=== PATIENT | female | born 1985 | race Caucasian/White ===

== ENCOUNTER 2022-03-12 12:22 | Outpatient (CLI) | payer OTHER, SELFPAY ==
--- NOTE | ~2022-03-12 | MMUS_ITS ---
EXAMINATION: MM diagnostic noel RT w gage, US breast RT limited HISTORY: Follow-up right breast asymmetry TECHNIQUE: Additional 3-D tomosynthesis images of the right breast were performed and synthetic 2-D i mages were generated. CAD analysis was submitted and interpreted. High resolution Limited right breas t ultrasound was performed. COMPARISON: 02/18/2022 BREAST PARENCHYMAL COMPOSITION: Breast composed of scattered areas of fibroglandular density FINDINGS: MAMMOGRAPHIC FINDINGS: There is a persistent subareolar mass with poorly circumscribed margins measuring approximately 2 cm. There are internal calcifications. ULTRASOUND: Limited right breast ultrasound: There are the areola at 9:00 there is a 2.5 x 1.0 x 1.6 cm predomina ntly hypoechoic although heterogeneous mass. There is parallel orientation with no significant sales and merchandising associate ior features or internal vascularity. There are internal calcifications IMPRESSION: 1. Complex 2.5 cm right breast mass in the periareolar location at 9:00. 2. Ultrasound-guided right breast biopsy recommended. BI-RADS category 4, suspicious findings. Reviewed, dictated and finalized at location B. [facility] IMPRESSION: 1. Complex 2.5 cm right breast mass in the periareolar location at 9:00. 2. Ultrasound-guided right breast biopsy recommended. BI-RADS category 4, suspicious findings.
== END 2022-03-12 12:23 | disposition home or self-care (01) ==
LOC: ANHIMG 12:27
PROVIDERS: Visit Provider Surgery Plastic and Reconstructive Surgery
DX: R92.8 Other abnormal and inconclusive findings on diagnostic imaging of breast (principal)
CPT/HCPCS: 76642; 77061; 77065; G0279

== ENCOUNTER 2022-06-27 09:55 | Day surgery (SDC) | payer OTHER, SELFPAY ==
[2022-06-18 09:16] VITALS: BMI 28.4
[2022-06-27] VITALS (7 sets, daily range): BP systolic 91–121; BP diastolic 62–86; PULSE 47–88; RESP 14–20; TEMP 36.5–36.9; O2SAT 99–100
--- NOTE | 2022-06-27 06:50 | WPDANESEPPF ---
Anes - Initial Pre Proc Eval Procedure: Operation Date: 06/27/22 11:30 Proposed Procedures p Bilateral Breast Augmentation Mammoplasty - Tomas Rdz MD <Kp Hussein DO - Last Filed: 07/07/22 08:26> Date/Time: 06/27/22 06:50 <Kp Hussein DO - Last Filed: 07/07/22 08:26> Surgeon: Tomas Rdz MD <Kp Hussein DO - Last Filed: 07/07/22 08:26> Pre Op Diagnosis: Micromastia <Kp Hussein DO - Last Filed: 07/07/22 08:26> Patient Data Age: 37 Gender: F Height: 1.68 m Weight: 80 kg <Kp Hussein DO - Last Filed: 07/07/22 08:26> Allergies Allergy/AdvReac Type Severity Reaction Status Date / Time No Known Allergies Allergy Verified 06/27/22 10:46 <Kp Hussein DO - Last Filed: 07/07/22 08:26> Home Medications Medication Instructions Recorded Confirmed Type sulfasalazine 500 mg tablet 0.5 g PO DAILY 06/18/22 06/27/22 History <Kp Hussein DO - Last Filed: 07/07/22 08:26> Patient hx anesthesia problems: none <Simon Munoz MD - Last Filed: 06/27/22 10:31> Family hx anesthesia problems: none <Simon Munoz MD - Last Filed: 06/27/22 10:31> Results Review: All pre-operative results and documents have been reviewed as part of the pre-operative evaluation. <Kp Hussein DO - Last Filed: 07/07/22 08:26> PMFSH Past Medical History Medical History: Medical History (Updated 06/27/22 @ 06:51 by Kp Hussein DO) Rheumatoid arthritis <Kp Hussein DO - Last Filed: 07/07/22 08:26> Social History Social History: Social History Smoking status: Never smoker Second hand tobacco smoke exposure: No Alcohol intake: current Drinks per week: 3 Alcohol use details: WEEKENDS, SOCIALLY Substance use: never Substance use type: does not use Living arrangements: with family Spiritual care concerns: No <Kp Hussein DO - Last Filed: 07/07/22 08:26> Anes - Eval Final PreProcedure Day of Procedure 06/27/22 06:50 <Kp Hussein DO - Last Filed: 07/07/22 08:26> Patient weight: overweight <Kp Hussein DO - Last Filed: 07/07/22 08:26> Heart: regular rate and rhythm <Kp Hussein DO - Last Filed: 07/07/22 08:26> Lungs: clear to auscultation <Kp Hussein DO - Last Filed: 07/07/22 08:26> Airway: Mallampati scale class II <Kp Hussein DO - Last Filed: 07/07/22 08:26> Neurological: alert and oriented <Kp Hussein DO - Last Filed: 07/07/22 08:26> Last oral intake: >/= 8 hours <Kp Hussein DO - Last Filed: 07/07/22 08:26> ASA classification: II <Kp Hussein DO - Last Filed: 07/07/22 08:26> Emergent: no <Kp Hussein DO - Last Filed: 07/07/22 08:26> Anesthetic plan: proceed <Kp Hussein DO - Last Filed: 07/07/22 08:26> Anesthesia type and monitoring: general LMA and standard monitoring <Kp Hussein DO - Last Filed: 07/07/22 08:26> Results Review: All pre-operative results and documents have been reviewed as part of the pre-operative evaluation. <Kp Hussein DO - Last Filed: 07/07/22 08:26> Informed Consent: The patient's anesthetic plan and its attendant risks and benefits were discussed with the patient/family/POA. Questions were solicited and answers provided to the satisfaction of the patient/family/POA. <Kp Hussein, DO - Last Filed: 07/07/22 08:26>
--- NOTE | 2022-06-27 10:23 | P.OP_ITS ---
Procedure Note - Detailed Date of Procedure 06/27/22 Pre-op Diagnosis Micromastia Post-op Diagnosis Same Procedure Performed Bilateral augmentation mammaplasty Surgeon Tomas Rdz MD Anesthesia General Findings Bilateral Ilda Kinney Softtouch 560 cc Right - REF# [id number] SN [id number] Dual plane 3 Left - REF# [id number] SN [id number] Dual plane 2 Description of Procedure She is here today for bilateral breast augmentation. Previously and again today the risks, benefits, alternatives were discussed in extensive detail. I wanted her to be very realistic about the risks involved as well as expectations. We discussed aftercare and what to monitor for. Made sure answered all of her questions to her satisfaction today and consent was obtained. Marked in the preoperative holding area with their verification. The patient was taken to the operating room placed supine on the operating table. Anesthesia was provided by anesthesiology. A surgical time-out was taken. We cleansed the skin and 1% lidocaine and 0.25% Marcaine with epinephrine was used anesthetize as a field block. She was prepped and draped in a standard sterile fashion. Tegaderm nipple Dorsey were placed. A 15 blade used to make an incision along the inframammary fold. Dissection was continued at 45 degree angle until the chest wall as identified. I incised the pectoralis major along its inferior border and completely released the inferior border leaving the medial border intact. I created a subpectoral pocket in the appropriate dimensions based on our preoperative planning for the implant. I then copiously irrigated with saline solution and verified a strict hemosta sis. Next the use a triple antibiotic and Betadine containing solution to irrigate the pocket. I washed my gloves with the triple antibiotic and Betadine solution. We washed the implant immediately upon opening it with this solution and only opened it when we needed it. I used implant funnel and no-touch technique. The implant was introduced into the pocket using the funnel. Having verified p ositioning of the implant this was closed using 2-0 Vicryl followed by 3-0 Monocryl in a running subcuticular 4-0 Monocryl followed by tissue glue. Fluffs and surgical bra were placed. Patient was awoke and taken to PACU without difficulty. All instrument sponge counts were correct at the end of the case. Estimated Blood Loss 50 Drains No Packing No Pathology None sent Complications No immediate complications Condition Stable Disposition PACU
--- NOTE | 2022-06-27 10:23 | WPDHPUPDATE1 ---
History and Physical Update Update Date/Time: 06/27/22 10:23 History and Physical has been reviewed, including an updated exam of the patient. There are NO changes in the patient's condition. Risks, benefits, and alternatives have been discussed and questions answered. Patient agrees to proceed with procedure.
[2022-06-27] MEDS: SCOPOLAMINE 1.5 MG PATCH TRANSDERM (10:45)
[2022-06-27] MEDS: LACTATED RINGERS 1,000 ML 30 ML IV CONT ×2 (10:45→13:20)
[2022-06-27] MEDS: ceFAZolin SODIUM 2 GM/20 ML SW SYRINGE IV PUSH (11:51)
[2022-06-27] MEDS: TRANEXAMIC ACID 1,000 MG/10 ML AMPUL 1000 MG IV PUSH (11:57)
[2022-06-27] MEDS: NACL 0.9% IRRIG POUR BOTTLE 900 ML, GENTAMICIN SULFATE INJ 160 MG, ceFAZolin 2 GM, POVI... IRRIGATION (12:14)
[2022-06-27] MEDS: fentaNYL CITRATE INJ (*CRX) 100 MCG/2 ML VIAL 25 MCG IV PUSH ×2 (13:02→13:07)
--- NOTE | 2022-06-27 13:09 | SUR.PHASEI ---
REPORT GIVEN TO SHIRIN SURESH
[2022-06-27] MEDS: oxyCODONE HCL (*CRX) 5 MG TAB IR PO (13:39)
--- NOTE | 2022-06-27 15:33 | WPDANESPN ---
Anes - Prog Note Post-Op Date/Time: 06/27/22 15:33 Cardiovascular status: normal Respiratory status: normal Airway patency: baseline Mental status: baseline Post-Op hydration status: normal Vital Signs: Last Vital Signs Temp 36.5 C 06/27/22 12:47 Pulse 55 L 06/27/22 13:45 Resp 20 06/27/22 13:45 BP 112/67 06/27/22 13:45 Pulse Ox 99 06/27/22 13:45 O2 Del Method Room Air 06/27/22 13:45 O2 Flow Rate 6 06/27/22 13:00 Pain Score (VAS): 0 I/O: Intake & Output 06/26/22 06/27/22 06/27/22 23:59 07:59 15:59 Intake Total 400 Balance 400 Post-procedural complaints: none Patient Feedback: Patient satisfied with anesthetic care.
== END 2022-06-27 13:55 | disposition home or self-care (01) ==
PROVIDERS: Visit Provider Surgery Plastic and Reconstructive Surgery
PROC: (CPT 19325; principal; 2022-06-27 11:30)
DX: N64.82 Hypoplasia of breast (principal)
CPT/HCPCS: 19325